=== PATIENT | female | born 1995 | race Two or more races ===

== ENCOUNTER 2025-04-07 14:54 | Emergency (ER) | payer MEDICAID, OTHER ==
[~2025-04-07] VITALS: Ht 157.5 cm; Wt 91.6 kg
--- NOTE | 2025-04-07 15:33 | ED.PDOC ---
History of Present Illness HPI Comments 29 y.o female presents to the ED for multiple complaints. Patient reports one week history of bilateral ear pain with a generalized headache and now states 1 day history of palpitations with vision changes. Patient reports new onset of all symptoms with no previous ear infections, cardiac or blood pressure history. Patient denies any ear bleeding, discharge, fever, chills, chest pain, SOB. Patient denies medical history or allergies. 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 STAFF ACCOUNTANT History Family History Family History: Reviewed,noncontributory to illness Social History Smoker: Non-Smoker Alcohol: Denies ETOH Use Drugs: Denies Drug Use Lives In: Home Constitutional: denies: chills, diaphoresis, fatigue, fever, malaise, sweats, weakness, others EENTM: reports: blurred vision, ear pain; denies: double vision, ear bleeding, ear discharge, ear drainage, ear ringing, eye pain, eye redness, hearing loss, mouth pain, mouth swelling, nasal discharge, nose bleeding, nose congestion, nose pain, photophobia, tearing, throat pain, throat swelling, voice changes, others Respiratory: denies: cough, hemoptysis, orthopnea, SOB at rest, shortness of breath, SOB with excertion, stridor, wheezing, others Cardiovascular: reports: palpitations; denies: chest pain, dizzy spells, diaphoresis, Dyspnea on exertion, edema, irregular heart beat, left arm pain, lightheadedness, PND, syncope, others Gastrointestinal: denies: abdomen distended, abdominal pain, blood streaked bowels, constipated, diarrhea, dysphagia, difficulty swallowing, hematemesis, melena, nausea, poor appetite, poor fluid intake, rectal bleeding, rectal pain, vomiting, others Genitourinary: denies: abnormal vagina bleeding, burning, dyspareunia, dysuria, flank pain, frequency, hematuria, incontinence, pain, , vagina discharge, urgency, others Neurological: reports: headache; denies: dizziness, fainting, left sided numbness, left sided weakness, numbness, paresthesia, pre-existing deficit, right sided numbness, right sided weakness, seizure, speech problems, tingling, tremors, weakness, others Musculoskeletal: denies: back pain, gout, joint pain, joint swelling, muscle pain, muscle stiffness, neck pain, others Integumetry: denies: bruises, change in color, change in hair/nails, dryness, laceration, lesions, lumps, rash, wounds, others Allergic/Immunocompromised: denies: Difficulty Healing, Frequent Infections, Hives, Itching, others Hematologic/Lymphatic: denies: anemia, blood clots, easy bleeding, easy bruisin g, swollen glands, others Endocrine: denies: excessive hunger, excessive sweating, excessive thirst, excessive urination, flushing, intolerance to cold, intolerance to heat, unexplained weight gain, unexplained weight loss, others Psychiatric: denies: anxiety, bipolar disorder, depression, hopeless, panic disorder, schizophrenia, sleepless, suicidal, others All Other Systems: Reviewed and Negative Physical Exam General Appearance: Mild Distress HEENT: Pharynx Normal, Other (Cerumen impaction with redness to the canal) Neck: Full Range of Motion, Non-Tender, Normal, Normal Inspection Respiratory: Chest Non-Tender, Lungs Clear, No Accessory Muscle Use, No Respiratory Distress, Normal Breath Sounds Cardiovascular: No Edema, No JVD, No Murmur, No Gallop, Normal Peripheral Pulses, Regular Rate/Rhythm Breast Exam: Deferred Gastrointestinal: No Organomegaly, Non Tender, No Pulsatile Mass, Normal Bowel Sounds, Soft Genitalia: Deferred Pelvic: Deferred Rectal: Deferred Extremities: No calf tenderness, Normal capillary refill, Normal inspection, Normal range of motion, Non-tender, No pedal edema Musculoskeletal : Apperance: Normal Neurologic: Alert, 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 Was a procedure done?: No EKG EKG : Pulse Rate (adult): 70 Devine: Normal Cardiac Rhythm: NSR Block: None ST: Nonsp Differential Dx Considerations may include: Otitis Externa, Acute Otitis Media (AOM), acute sinusitis Anxiety, sinus tachycardia, dehydration, electrolyte imbalance, hypertension X-Ray, Labs, Meds, VS Vital Signs Date Time Temp Pulse Resp B/P (MAP) Pulse Ox O2 Delivery O2 Flow Rate FiO2 04/07/25 15:34 70 04/07/25 15:00 100.0 78 20 146/79 (101) 95 100.0 Time of 1ST Reevaluation: 15:33 Reevaluation 1ST: Unchanged Patient Education/Counseling: Diagnosis, Treatment, Prognosis, Need For Follow Up Family Education/Counseling: No Family Present Departure 1 Departure Time of Disposition: 15:53 Impression: Primary Impression: Bilateral otitis media Qualified Codes: H66.93 - Otitis media, unspecified, bilateral Disposition: 01 HOME / SELF CARE / HOMELESS Condition: Fair Discharged With: Self Critical Care Note Critical Care Time?: No Stability Stability form required: No Heart Score Heart Score: Heart Score Response (Comments) Value History N/A 0 EKG N/A 0 Age N/A 0 Risk Factors N/A 0 Troponin N/A 0 Total 0 I personally scribed for CHAUNCEY LUX MD ([email or web address]) on 04/07/25 at 15:33. Electronically submitted by Maria Esther Freire ([facility] I personally scribed for CHAUNCEY LUX MD ([email or web address]) on 04/07/25 at 15:33. Electronically submitted by Maria Esther Freire ([facility]). CHAUNCEY LUX MD April 07, 2025 15:33
--- NOTE | 2025-04-07 15:35 | ECG ---
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
[2025-04-07] MEDS ORDERED: BACDST PO (15:54)
[2025-04-07] MEDS ORDERED: COR10OTS OT (15:54)
[2025-04-07 16:10] VITALS: BP 123/73; PULSE 77; RESP 14; TEMP 98.6; O2SAT 99
== END 2025-04-07 16:15 | disposition home or self-care (01) ==
LOC: ER 15:08
DX: H66.93 Otitis media, unspecified, bilateral (principal); R00.2 Palpitations; H53.8 Other visual disturbances; R51.9 Headache, unspecified; Z98.890 Other specified postprocedural states
CPT/HCPCS: 93005